=== PATIENT | male | born 1985 | race Caucasian/White ===

== ENCOUNTER 2023-07-02 15:26 | Emergency (ER) | payer MEDICAID ==
[~2023-07-02] VITALS: Ht 170.2 cm; Wt 117.9 kg
[2023-07-02 15:26] VITALS: BP_SYST 123; PULSE 83; RESP 17; TEMP 97.2; O2SAT 99
[2023-07-02] MEDS ORDERED: LORazepam 2 MG/ML VIAL IVP ONE ×2 (15:45→16:15)
[2023-07-02 15:59] LABS: BASOPHILS % (AUTO) 0.6 % (0.0-2.0); EOSINOPHILS # (AUTO) 0.2 K/uL (0.0-0.4); EOSINOPHILS % (AUTO) 2.3 % (0.0-4.0); HEMATOCRIT 41.5 % (36-54); HEMOGLOBIN 13.2 g/dL (14.0-18.0); LYMPHOCYTES # (AUTO) 2.2 K/uL (1.0-5.5); LYMPHOCYTES % (AUTO) 30.1 % (20.5-51.5); MEAN CORPUSCULAR HEMOGLOBIN 24 pg (27-31); MEAN CORPUSCULAR HGB CONC 32 % (32-36); MEAN CORPUSCULAR VOLUME 77 fL (79.0-98.0); MONOCYTES # (AUTO) 0.7 K/uL (0.0-1.0); MONOCYTES % (AUTO) 9.7 % (1.7-9.3); NEUTROPHILS # (AUTO) 4.1 K/uL (1.8-7.7); NEUTROPHILS % (AUTO) 57.3 % (40.0-70.0); PLATELET COUNT (AUTO) 208 K/uL (130-430); RED BLOOD CELL COUNT(AUTO) 5.41 MIL/uL (4.2-6.2); RED CELL DISTRIBUTION WIDTH 15.7 % (9.0-15.0); WHITE BLOOD COUNT (AUTO) 7.2 K/uL (4.8-10.8)
[2023-07-02] MEDS ORDERED: KETOROLAC TROMETHAMINE 30 MG VIAL IVP ONE (16:00)
[2023-07-02] MEDS ORDERED: cloNIDine HCL 0.2 MG TABLET PO ONE (16:15)
[2023-07-02 16:19] LABS: ALANINE AMINOTRANSFERASE 84 U/L (12-78); ALBUMIN 3.6 g/dL (3.4-4.8); ANION GAP 12 (5-15); ASPARTATE AMINOTRANSFERASE 48 U/L (10-37); CALCIUM 9.5 mg/dL (8.4-11.0); CARBON DIOXIDE 23 mmol/L (23-29); CHLORIDE 103 mmol/L (98-107); CREATININE 0.99 mg/dL (0.55-1.30); GFR AFRICAN AMERICAN 109 mL/min (>90); GFR NON AFRICAN-AMERICAN 90 mL/min (>90); GLUCOSE 151 mg/dL (74-106); POTASSIUM 3.4 mmol/L (3.5-5.1); SODIUM SERUM 138 mmol/L (136-145); TOTAL BILIRUBIN 0.3 mg/dL (0.0-1.0); TOTAL PROTEIN, SERUM 7.6 g/dL (6.4-8.3); UREA NITROGEN, BLOOD 13 mg/dL (8-21)
[2023-07-02 16:23] LABS: ALCOHOL, BLOOD < 3 mg/dL (<10)
[2023-07-02 16:24] LABS: INR 1.1 (0.80-1.20); PROTHROMBIN TIME 10.9 SECS (9.5-12.5)
[2023-07-02] MEDS ORDERED: NACL IV ONE ×2 (16:45)
[2023-07-02] MEDS ORDERED: KETAMINE HCL IV ONE ×2 (16:45)
[2023-07-02] MEDS ORDERED: KETAMINE 30 MG/3 ML SYRINGE 30 MG in NS 100 ML IV ONE (16:45)
[2023-07-02] MEDS ORDERED: NS IV ONE ×2 (16:45)
[2023-07-02] MEDS ORDERED: KETAMINE HCL IN 0.9 % NACL 50 MG/5 ML SYRINGE ONE ×2 (16:49→16:59)
[2023-07-02] MEDS ORDERED: NACL 0.9% 1,000 ML IV ONE (17:00)
[2023-07-02] MEDS ORDERED: DIPHENHYDRAMINE INJ 50 MG/ML VIAL IVP ONE (17:00)
[2023-07-02] MEDS ORDERED: DIPHENHYDRAMINE INJ 50 MG/ML VIAL IM ONE (17:00)
[2023-07-02] MEDS ORDERED: KETAMINE HCL 500 MG/10 ML VIAL IM ONE (17:00)
[2023-07-02 18:12] VITALS: BP_SYST 123; PULSE 83; RESP 17; TEMP 97.2; O2SAT 99
== END 2023-07-02 18:00 | disposition home or self-care (01) ==
LOC: SED 15:26
DX: R07.9 Chest pain, unspecified (principal); F10.10 Alcohol abuse, uncomplicated; F15.10 Other stimulant abuse, uncomplicated; Z76.5 Malingerer [conscious simulation]; Z88.8 Allergy status to other drugs, medicaments and biological substances; Z79.899 Other long term (current) drug therapy; Y90.6 Blood alcohol level of 120-199 mg/100 ml
CPT/HCPCS: 99285; 96374; 71045; 96375; 80053; 83880; 85025; 85610; 85730; 84484; 36415; 93005; 96376; G0482; J1200; J1885; J2060

== ENCOUNTER 2023-08-24 15:58 | Emergency (ER) | payer MEDICAID ==
[~2023-08-24] VITALS: Ht 172.7 cm; Wt 117.9 kg
[2023-08-24 16:00] VITALS: BP_SYST 129; PULSE 79; RESP 22; TEMP 98; O2SAT 99
[2023-08-24 16:57] LABS: BASOPHILS % (AUTO) 0.4 % (0.0-2.0); EOSINOPHILS # (AUTO) 0.1 K/uL (0.0-0.4); EOSINOPHILS % (AUTO) 1.4 % (0.0-4.0); HEMATOCRIT 39.8 % (36-54); HEMOGLOBIN 12.7 g/dL (14.0-18.0); LYMPHOCYTES # (AUTO) 1.1 K/uL (1.0-5.5); LYMPHOCYTES % (AUTO) 13.1 % (20.5-51.5); MEAN CORPUSCULAR HEMOGLOBIN 24 pg (27-31); MEAN CORPUSCULAR HGB CONC 32 % (32-36); MEAN CORPUSCULAR VOLUME 76 fL (79.0-98.0); MONOCYTES # (AUTO) 0.5 K/uL (0.0-1.0); NEUTROPHILS # (AUTO) 6.4 K/uL (1.8-7.7); NEUTROPHILS % (AUTO) 79.1 % (40.0-70.0); PLATELET COUNT (AUTO) 183 K/uL (130-430); RED BLOOD CELL COUNT(AUTO) 5.23 MIL/uL (4.2-6.2); WHITE BLOOD COUNT (AUTO) 8.1 K/uL (4.8-10.8)
[2023-08-24 17:04] LABS: METHAMPHETAMINES SCREEN,URINE NEGATIVE (NEG <=500); URINE AMPHETAMINE NEGATIVE (NEG <=500); URINE METHADONE NEGATIVE (NEG <=200)
[2023-08-24 17:05] LABS: BARBITURATE, URINE POSITIVE (NEG <=200); BENZODIAZEPINE, URINE POSITIVE (NEG <=150); CANNABINOID, URINE POSITIVE (NEG <=50); COCAINE, URINE NEGATIVE (NEG <=150); OPIATE, URINE POSITIVE (NEG <=100); PHENCYCLIDINE SCREEN,URINE NEGATIVE (NEG <=25); UR TRICYCLIC ANTIDEPRESSANTS NEGATIVE (NEG <=300); URINE OXYCODONE SCREEN NEGATIVE (NEG <=100)
[2023-08-24] MEDS ORDERED: LORazepam 2 MG/ML VIAL IVP ONE (17:15)
[2023-08-24 17:38] LABS: PROTHROMBIN TIME 10.5 SECS (9.5-12.5)
[2023-08-24] MEDS ORDERED: KETOROLAC TROMETHAMINE 30 MG VIAL IVP ONE (17:45)
[2023-08-24 17:47] LABS: ALANINE AMINOTRANSFERASE 54 U/L (12-78); ALBUMIN 3.3 g/dL (3.4-4.8); ANION GAP 11 (5-15); ASPARTATE AMINOTRANSFERASE 37 U/L (10-37); CARBON DIOXIDE 23 mmol/L (23-29); CHLORIDE 106 mmol/L (98-107); CREATININE 1.05 mg/dL (0.55-1.30); GFR AFRICAN AMERICAN 102 mL/min (>90); GLUCOSE 159 mg/dL (74-106); POTASSIUM 3.8 mmol/L (3.5-5.1); SODIUM SERUM 140 mmol/L (136-145); TOTAL BILIRUBIN 0.3 mg/dL (0.0-1.0); TOTAL PROTEIN, SERUM 7.4 g/dL (6.4-8.3); UREA NITROGEN, BLOOD 15 mg/dL (8-21)
[2023-08-24 17:49] LABS: BILIRUBIN,DIRECT 0.1 mg/dL (0.0-0.3)
[2023-08-24 17:51] LABS: ALCOHOL, BLOOD < 3 mg/dL (<10); GFR NON AFRICAN-AMERICAN 84 mL/min (>90)
[2023-08-24] MEDS ORDERED: ACETAMINOPHEN 500 MG TABLET PO ONE (21:00)
[2023-08-24 21:45] VITALS: BP_SYST 125; PULSE 85; RESP 18; TEMP 98.3; O2SAT 98
== END 2023-08-24 21:45 | disposition home or self-care (01) ==
LOC: SED 15:58
DX: R07.9 Chest pain, unspecified (principal); F41.0 Panic disorder [episodic paroxysmal anxiety]; K92.1 Melena; K92.0 Hematemesis; F15.10 Other stimulant abuse, uncomplicated; Z88.8 Allergy status to other drugs, medicaments and biological substances; Z79.899 Other long term (current) drug therapy
CPT/HCPCS: 99285; 96374; 71045; 96375; 80307; 80076; 80048; 83880; 85025; 85610; 84484; 36415; 93005; J1885; J2060; G0482

== ENCOUNTER 2023-12-03 22:40 | Inpatient (IN) | payer MEDICAID ==
[~2023-12-03] VITALS: Ht 170.2 cm; Wt 122.5 kg
[2023-12-03 22:49] VITALS: BP_SYST 122; PULSE 94; RESP 20; TEMP 97.2; O2SAT 98
[2023-12-03] MEDS: MORPHINE 4 MG INJ. 4 MG/ML VIAL IVP ONE ×2 (23:30→23:59)
[2023-12-04] MEDS: NITROGLYCERIN 1 INCH (GM) OINT. TP ONE
[2023-12-04 00:03] LABS: BASOPHILS # (AUTO) 0.1 K/uL (0.0-0.2); BASOPHILS % (AUTO) 0.7 % (0.0-2.0); EOSINOPHILS # (AUTO) 0.2 K/uL (0.0-0.4); EOSINOPHILS % (AUTO) 2.1 % (0.0-4.0); HEMATOCRIT 39.6 % (36-54); HEMOGLOBIN 12.7 g/dL (14.0-18.0); LYMPHOCYTES # (AUTO) 2.4 K/uL (1.0-5.5); LYMPHOCYTES % (AUTO) 31.9 % (20.5-51.5); MEAN CORPUSCULAR HEMOGLOBIN 24 pg (27-31); MEAN CORPUSCULAR HGB CONC 32 % (32-36); MEAN CORPUSCULAR VOLUME 76 fL (79.0-98.0); MONOCYTES # (AUTO) 0.7 K/uL (0.0-1.0); MONOCYTES % (AUTO) 9.1 % (1.7-9.3); NEUTROPHILS # (AUTO) 4.2 K/uL (1.8-7.7); NEUTROPHILS % (AUTO) 56.2 % (40.0-70.0); PLATELET COUNT (AUTO) 217 K/uL (130-430); RED CELL DISTRIBUTION WIDTH 16.5 % (9.0-15.0); WHITE BLOOD COUNT (AUTO) 7.4 K/uL (4.8-10.8)
[2023-12-04 00:26] LABS: ANION GAP 9 (5-15); CALCIUM 9.1 mg/dL (8.4-11.0); CARBON DIOXIDE 27 mmol/L (23-29); CHLORIDE 103 mmol/L (98-107); CREATININE 0.87 mg/dL (0.55-1.30); GFR AFRICAN AMERICAN 126 mL/min (>90); GLUCOSE 97 mg/dL (74-106); POTASSIUM 5.6 mmol/L (3.5-5.1); SODIUM SERUM 139 mmol/L (136-145); UREA NITROGEN, BLOOD 12 mg/dL (8-21)
[2023-12-04 00:29] LABS: GFR NON AFRICAN-AMERICAN 104 mL/min (>90)
[2023-12-04 00:33] LABS: ALANINE AMINOTRANSFERASE 65 U/L (12-78); ALBUMIN 3.7 g/dL (3.4-4.8); ASPARTATE AMINOTRANSFERASE 63 U/L (10-37); BILIRUBIN,DIRECT < 0.1 mg/dL (0.0-0.3); TOTAL BILIRUBIN 0.5 mg/dL (0.0-1.0); TOTAL PROTEIN, SERUM 8.3 g/dL (6.4-8.3)
[2023-12-04] MEDS: LORazepam 2 MG/ML VIAL IVP ONE (01:30)
[2023-12-04] MEDS: MORPHINE 4 MG INJ. 4 MG/ML VIAL IVP ONE ×2 (03:18→13:30)
[2023-12-04] MEDS ORDERED: CHLO25CA11 PO (04:27)
[2023-12-04] MEDS ORDERED: SER100 PO (04:27)
[2023-12-04] MEDS ORDERED: METO25TA6 PO (04:27)
[2023-12-04] MEDS ORDERED: INSU100I26 SQ (04:27)
[2023-12-04] MEDS ORDERED: LEVE500T21 PO (04:27)
[2023-12-04] MEDS ORDERED: MIRT-91 PO (04:27)
[2023-12-04] MEDS ORDERED: VIS50 PO (04:27)
[2023-12-04] MEDS ORDERED: CHLO10CA6 PO (04:27)
[2023-12-04] MEDS ORDERED: PANT40TA45 PO (04:27)
[2023-12-04] MEDS ORDERED: LURA20TA2 PO (04:27)
[2023-12-04] MEDS ORDERED: FLUP10TA12 PO (04:27)
[2023-12-04] MEDS ORDERED: ASPI-1155 PO (04:27)
[2023-12-04] MEDS ORDERED: ARIP10TA9 PO (04:27)
[2023-12-04] MEDS ORDERED: ALBMDI INH (04:27)
[2023-12-04] MEDS ORDERED: METF-379 PO (04:27)
[2023-12-04] MEDS ORDERED: CLOP75TA32 PO (04:27)
[2023-12-04] MEDS ORDERED: NEU300 PO (04:27)
[2023-12-04] MEDS ORDERED: ISOS60TA71 PO (04:27)
[2023-12-04] MEDS ORDERED: LEVE500T9 PO (04:27)
[2023-12-04] MEDS ORDERED: LISI20TA30 PO (04:27)
[2023-12-04] MEDS ORDERED: ARIP10TA52 PO (04:27)
[2023-12-04] MEDS ORDERED: ATOR20TA64 PO (04:27)
[2023-12-04] MEDS ORDERED: LURA20TA PO (04:27)
[2023-12-04] MEDS ORDERED: ONDANSETRON HCL 4 MG/2 ML VIAL IVP PRN (06:45)
[2023-12-04] MEDS ORDERED: NALOXONE HCL 0.4 MG/ML AMP (NARCAN) IVP PRN ×2 (06:45→08:00)
[2023-12-04] MEDS ORDERED: ALBUTEROL MDI INHALATION 8 GM INH INH PRN (07:15)
[2023-12-04] MEDS: MORPHINE 2 MG/ML INJ. SYRINGE IVP PRN ×2 (07:58→20:33)
[2023-12-04] MEDS ORDERED: INSULIN ASPART 100 UNITS/ML, 10 ML VIAL (NovoLOG) SUBCUT PRN (08:00)
[2023-12-04] MEDS ORDERED: INSULIN Lispro 100 UNITS/ML, 3 ML VIAL (humaLOG) ONE (08:07)
[2023-12-04] MEDS ORDERED: GLUCOSE (DEXTROSE) ORAL GEL -Adults PO PRN (08:15)
[2023-12-04] MEDS ORDERED: D5W 1,000 ML IV PRN (08:15)
[2023-12-04] MEDS ORDERED: DEXTROSE 50%-WATER 50 ML DISP.SYRIN IVP PRN (08:15)
[2023-12-04] MEDS: CLOPIDOGREL BISULFATE 75 MG TABLET PO SCH (08:26)
[2023-12-04] MEDS: PANTOPRAZOLE SODIUM 40 MG TAB PO SCH (08:26)
[2023-12-04] MEDS ORDERED: ALBUTEROL SULFATE 0.083% 2.5 MG/3 ML VIAL.NEB INH PRN (08:45)
[2023-12-04] MEDS ORDERED: ATORVASTATIN 20 MG TABLET PO SCH (09:00)
[2023-12-04] MEDS ORDERED: ARIPiprazole 5 MG TAB PO SCH (09:00)
[2023-12-04] MEDS: levETIRAcetam 500 MG TABLET PO SCH (09:00)
[2023-12-04] MEDS: ASPIRIN 81 MG TAB.CHEW PO SCH (09:11)
[2023-12-04 10:25] VITALS: BP_SYST 122; PULSE 76; RESP 16; TEMP 98.3; O2SAT 97
[2023-12-04 11:12] LABS: BASOPHILS % (AUTO) 0.6 % (0.0-2.0); EOSINOPHILS # (AUTO) 0.2 K/uL (0.0-0.4); EOSINOPHILS % (AUTO) 2.7 % (0.0-4.0); HEMATOCRIT 36.4 % (36-54); LYMPHOCYTES # (AUTO) 2.4 K/uL (1.0-5.5); LYMPHOCYTES % (AUTO) 32.9 % (20.5-51.5); MEAN CORPUSCULAR HEMOGLOBIN 25 pg (27-31); MEAN CORPUSCULAR HGB CONC 33 % (32-36); MEAN CORPUSCULAR VOLUME 76 fL (79.0-98.0); MONOCYTES # (AUTO) 0.8 K/uL (0.0-1.0); MONOCYTES % (AUTO) 11.2 % (1.7-9.3); NEUTROPHILS # (AUTO) 3.8 K/uL (1.8-7.7); NEUTROPHILS % (AUTO) 52.6 % (40.0-70.0); PLATELET COUNT (AUTO) 200 K/uL (130-430); RED BLOOD CELL COUNT(AUTO) 4.79 MIL/uL (4.2-6.2); RED CELL DISTRIBUTION WIDTH 16.2 % (9.0-15.0); WHITE BLOOD COUNT (AUTO) 7.2 K/uL (4.8-10.8)
[2023-12-04] MEDS ORDERED: MORPHINE 2 MG/ML INJ. SYRINGE IVP PRN (11:30)
[2023-12-04 12:00] VITALS: BP_SYST 128; PULSE 80; RESP 14; TEMP 98.3; O2SAT 98
[2023-12-04] MEDS: LORazepam 1 MG TABLET PO PRN (15:31)
[2023-12-04 16:00] VITALS: BP_SYST 122; PULSE 84; RESP 14; TEMP 98.3; O2SAT 99
[2023-12-04 17:39] LABS: METHAMPHETAMINES SCREEN,URINE NEGATIVE (NEG <=500); URINE AMPHETAMINE NEGATIVE (NEG <=500); URINE METHADONE NEGATIVE (NEG <=200)
[2023-12-04 17:40] LABS: BARBITURATE, URINE POSITIVE (NEG <=200); BENZODIAZEPINE, URINE POSITIVE (NEG <=150); CANNABINOID, URINE NEGATIVE (NEG <=50); COCAINE, URINE NEGATIVE (NEG <=150); OPIATE, URINE POSITIVE (NEG <=100); PHENCYCLIDINE SCREEN,URINE NEGATIVE (NEG <=25); URINE OXYCODONE SCREEN NEGATIVE (NEG <=100)
[2023-12-04 17:41] LABS: UR TRICYCLIC ANTIDEPRESSANTS NEGATIVE (NEG <=300)
[2023-12-04 20:10] VITALS: BP_SYST 130; PULSE 100; TEMP 97.5; O2SAT 97
[2023-12-04 20:30] VITALS: O2SAT 97
[2023-12-04] MEDS: MIRTAZAPINE 15 MG TABLET PO SCH (20:31)
[2023-12-04] MEDS: INSULIN LISPRO SLIDING SCALE 100 UNITS/ML, 3 ML VIAL (humaLOG) SUBCUT PRN (20:47)
[2023-12-04] MEDS ORDERED: GABAPENTIN 300 MG CAPSULE PO SCH (21:00)
[2023-12-04] MEDS ORDERED: QUEtiapine FUMARATE 100 MG TABLET PO SCH (21:00)
== END 2023-12-05 08:40 | disposition left against medical advice (07) | DRG 243 ==
LOC: SED 22:40 → STU 12-04 03:13
PROVIDERS: ADMIT Internal Medicine; ATTEND Internal Medicine
DX: K21.9 Gastro-esophageal reflux disease without esophagitis (principal); R65.10 Systemic inflammatory response syndrome (SIRS) of non-infectious origin without acute organ dysfunction; E11.9 Type 2 diabetes mellitus without complications; I10 Essential (primary) hypertension; F32.A Depression, unspecified; I25.119 Atherosclerotic heart disease of native coronary artery with unspecified angina pectoris; E78.5 Hyperlipidemia, unspecified; F41.9 Anxiety disorder, unspecified; Z53.29 Procedure and treatment not carried out because of patient's decision for other reasons; Z79.899 Other long term (current) drug therapy; G40.909 Epilepsy, unspecified, not intractable, without status epilepticus; F15.10 Other stimulant abuse, uncomplicated; F10.20 Alcohol dependence, uncomplicated
CPT/HCPCS: 36415; 71045; 80048; 80076; 80307; 82948; 83037; 83880; 84443; 84484; 85025; 85379; 93005; 93306; 99285; G0378; J2060; J2270

== ENCOUNTER 2024-04-24 20:59 | Emergency (ER) | payer MEDICAID ==
[~2024-04-24] VITALS: Ht 175.3 cm; Wt 120.2 kg
[~2024-04-24 20:59] MED LIST: ALBMDI INH; ARIP10TA52 PO; ASPI-1155 PO; ATOR20TA64 PO; CLOP75TA32 PO; FLUP10TA12 PO; INSU100I26 SQ; ISOS60TA71 PO; LEVE500T9 PO; LISI20TA30 PO; LURA20TA PO; METF-379 PO; METO25TA6 PO; MIRT-91 PO; NEU300 PO; PANT40TA45 PO; SER100 PO; VIS50 PO
[2024-04-24 21:18] VITALS: BP_SYST 154; PULSE 104; RESP 24; TEMP 98.6; O2SAT 94
[2024-04-24] MEDS: NACL 0.9% 1,000 ML IV ONE (22:14)
[2024-04-24] MEDS: LORazepam 2 MG/ML VIAL IVP ONE (22:15)
[2024-04-24] MEDS: FAMOTIDINE PF 20 MG/2 ML VIAL IVP ONE (22:16)
[2024-04-24 22:17] LABS: BASOPHILS # (AUTO) 0.1 K/uL (0.0-0.2); BASOPHILS % (AUTO) 0.8 % (0.0-2.0); EOSINOPHILS # (AUTO) 0.1 K/uL (0.0-0.4); EOSINOPHILS % (AUTO) 1.3 % (0.0-4.0); HEMOGLOBIN 11.2 g/dL (14.0-18.0); LYMPHOCYTES # (AUTO) 2.1 K/uL (1.0-5.5); LYMPHOCYTES % (AUTO) 32.2 % (20.5-51.5); MEAN CORPUSCULAR HEMOGLOBIN 25 pg (27-31); MEAN CORPUSCULAR HGB CONC 33 % (32-36); MEAN CORPUSCULAR VOLUME 77 fL (79.0-98.0); MONOCYTES # (AUTO) 0.6 K/uL (0.0-1.0); NEUTROPHILS # (AUTO) 3.6 K/uL (1.8-7.7); NEUTROPHILS % (AUTO) 55.7 % (40.0-70.0); PLATELET COUNT (AUTO) 165 K/uL (130-430); RED BLOOD CELL COUNT(AUTO) 4.42 MIL/uL (4.2-6.2); RED CELL DISTRIBUTION WIDTH 16.5 % (9.0-15.0); WHITE BLOOD COUNT (AUTO) 6.4 K/uL (4.8-10.8)
[2024-04-24 22:32] LABS: ALANINE AMINOTRANSFERASE 31 U/L (12-78); ALBUMIN 3.6 g/dL (3.4-4.8); ALCOHOL, BLOOD < 3 mg/dL (<10); ANION GAP 11 (5-15); ASPARTATE AMINOTRANSFERASE 26 U/L (10-37); BILIRUBIN,DIRECT 0.1 mg/dL (0.0-0.3); CALCIUM 8.5 mg/dL (8.4-11.0); CARBON DIOXIDE 25 mmol/L (23-29); CHLORIDE 106 mmol/L (98-107); CREATININE 1.01 mg/dL (0.55-1.30); GFR AFRICAN AMERICAN 106 mL/min (>90); GFR NON AFRICAN-AMERICAN 88 mL/min (>90); GLUCOSE 92 mg/dL (74-106); POTASSIUM 3.5 mmol/L (3.5-5.1); SODIUM SERUM 142 mmol/L (136-145); TOTAL BILIRUBIN 0.3 mg/dL (0.0-1.0); TOTAL PROTEIN, SERUM 7.2 g/dL (6.4-8.3); UREA NITROGEN, BLOOD 12 mg/dL (8-21)
[2024-04-25] MEDS ORDERED: LORA2TAB95 PO (00:15)
[2024-04-25 00:21] VITALS: BP_SYST 137; PULSE 91; RESP 22; TEMP 98.2; O2SAT 93
== END 2024-04-25 00:21 | disposition home or self-care (01) ==
LOC: SED 20:59
DX: F10.10 Alcohol abuse, uncomplicated (principal); R07.89 Other chest pain; R00.2 Palpitations; Z88.8 Allergy status to other drugs, medicaments and biological substances; Z79.899 Other long term (current) drug therapy; Z79.2 Long term (current) use of antibiotics; Y90.0 Blood alcohol level of less than 20 mg/100 ml
CPT/HCPCS: 99284; 96374; 96361; 96375; 80076; 80048; 85025; 84484; 36415; 93005; G0482; J3490; J2060; J7030